=== PATIENT | female | born 1950 | race Two or more races ===

== ENCOUNTER 2018-09-13 11:00 | Emergency (ER) | payer MEDICAID, OTHER ==
[~2018-09-13] VITALS: Ht 157.5 cm; Wt 120.7 kg
[2018-09-13 12:59] LABS: Basophils # (auto) 0.1 uL; Basophils % (auto) 0.8 % (0.0-2.0); Eosinophils # (auto) 0.2 uL; Eosinophils % (auto) 2.1 % (0.0-7.0); Hematocrit 45.8 % (36.0-46.0); Hemoglobin 14.8 g/dL (12.2-16.2); Lymphocytes # (auto) 2.5 uL; Lymphocytes % (auto) 21.2 % (10.0-50.0); Mean Corpuscular Hemoglobin 28.6 pg (28.0-32.0); Mean Corpuscular Hgb Conc. 32.2 g/dL (32.0-36.0); Mean Corpuscular Volume 88.8 fL (80.0-100.0); Monocytes # (auto) 0.7 uL; Monocytes % (auto) 6.2 % (0.0-12.0); Neutrophils # (auto) 8.1 uL; Neutrophils % (auto) 69.7 % (37.0-80.0); Nucleated Red Blood Cells % 0.1 %; Platelet Count (auto) 376 10^3/uL (140-450); Red Blood Cells 5.16 10^6/uL (4.0-5.20); Red Cell Distribution Width 15.5 % (11.8-14.3); White Blood Cell 11.7 10^3/uL (4.4-10.8)
[2018-09-13 13:22] LABS: Albumin 3.7 g/dL (3.4-5.0); Anion Gap 7 (5-15); Blood Urea Nitrogen 18 mg/dL (7-18); Calcium 8.7 mg/dL (8.5-10.1); Carbon Dioxide 25 mmol/L (21-32); Chloride 106 mmol/L (98-107); Glucose 105 mg/dL (74-106); Magnesium 2.5 mg/dL (1.6-2.6); Potassium 4.2 mmol/L (3.5-5.1); Sodium 138 mmol/L (136-145)
[2018-09-13 13:28] LABS: Alanine Aminotransferase 29 U/L (13-56); Alkaline Phosphatase 69 U/L (45-117); Aspartate Aminotransferase 16 U/L (15-37); BUN/Creatinine Ratio 32.1; Bilirubin, Total 0.3 mg/dL (0.2-1.0); GFR African American 139 mL/min; GFR Non-African American 115 mL/min; Total Protein 7.5 g/dL (6.4-8.2)
[2018-09-13] MEDS ORDERED: IOHEXOL 350 MG/ML 100ML IJ ONE (23:23)
[2018-09-14 01:14] VITALS: BP 130/56
== END 2018-09-14 01:54 | disposition home or self-care (01) ==
LOC: ER 11:00 → EDBD 11:00 → ER 09-14 01:54
DX: R07.89 Other chest pain (principal); R06.00 Dyspnea, unspecified; M25.561 Pain in right knee; M25.562 Pain in left knee; K21.9 Gastro-esophageal reflux disease without esophagitis; Z88.1 Allergy status to other antibiotic agents
CPT/HCPCS: 36415; 71046; 71275; 80053; 83735; 84484; 85025; 85379; 93005; 93971; 99284; Q9967

== ENCOUNTER 2019-07-17 17:06 | Emergency (ER) | payer MEDICARE, MEDICAID ==
[~2019-07-17] VITALS: Ht 157.5 cm; Wt 121.6 kg
[2019-07-17 18:14] LABS: Basophils # (auto) 0.1 uL; Basophils % (auto) 0.9 % (0.0-2.0); Eosinophils # (auto) 0.3 uL; Eosinophils % (auto) 2.1 % (0.0-7.0); Hematocrit 45.1 % (36.0-46.0); Hemoglobin 15.2 g/dL (12.2-16.2); Lymphocytes # (auto) 2.6 uL; Lymphocytes % (auto) 19.4 % (10.0-50.0); Mean Corpuscular Hemoglobin 28.1 pg (28.0-32.0); Mean Corpuscular Hgb Conc. 33.6 g/dL (32.0-36.0); Mean Corpuscular Volume 83.6 fL (80.0-100.0); Monocytes # (auto) 0.8 uL; Monocytes % (auto) 5.9 % (0.0-12.0); Neutrophils # (auto) 9.5 uL; Neutrophils % (auto) 71.7 % (37.0-80.0); Platelet Count (auto) 391 10^3/uL (140-450); Red Cell Distribution Width 15.2 % (11.8-14.3); White Blood Cell 13.2 10^3/uL (4.4-10.8)
[2019-07-17 18:31] LABS: Calcium 9.2 mg/dL (8.5-10.1); Potassium 4.2 mmol/L (3.5-5.1)
[2019-07-17 18:34] LABS: BUN/Creatinine Ratio 22.7; Bilirubin, Total 0.3 mg/dL (0.2-1.0)
[2019-07-17 18:46] LABS: Urine Bacteria NONE SEEN /hpf (None Seen); Urine Blood Negative /uL (Negative); Urine Mucus FEW (None Seen); Urine Specific Gravity 1.009 (1.001-1.035); Urine WBC 2 /hpf (0 - 5)
[2019-07-17 19:20] LABS: Amylase 70 U/L (25-115); Lipase 169 U/L (73-393)
[2019-07-17] MEDS ORDERED: IOHEXOL 300 MG/ML 100ML BOTTLE IJ ONE (23:00)
[2019-07-18 02:57] VITALS: BP 128/57
[2019-07-18] MEDS ORDERED: HYDROcodone-ACET 5/325MG TAB PO ONE (03:45)
[2019-07-18] MEDS ORDERED: ONDANSETRON ODT 4 MG TAB PO ONE (03:45)
== END 2019-07-18 04:54 | disposition home or self-care (01) ==
LOC: EDBD 17:06 → ER 17:06
DX: G89.4 Chronic pain syndrome (principal); R10.84 Generalized abdominal pain; K59.00 Constipation, unspecified; K21.9 Gastro-esophageal reflux disease without esophagitis; J45.909 Unspecified asthma, uncomplicated; Z88.1 Allergy status to other antibiotic agents
CPT/HCPCS: 36415; 74177; 80053; 81001; 82150; 82962; 83690; 85025; 93005; 99284; Q0162; Q9967

== ENCOUNTER 2020-10-28 10:41 | Inpatient (IN) | payer MEDICARE, MEDICAID ==
[~2020-10-28] VITALS: Ht 154.9 cm; Wt 126.4 kg
[2020-10-28] MEDS ORDERED: ONDANSETRON HCL 4 MG/2 ML VIAL IV ONE (11:15)
[2020-10-28] MEDS ORDERED: MORPHINE SULFATE 4 MG/ML SYR/VIAL IV ONE (11:15)
[2020-10-28 11:52] LABS: Basophils # (auto) 0.1 10 ^3/uL (0-0.2); Basophils % (auto) 1.4 % (0.0-2.0); Eosinophils # (auto) 0.2 10 ^3/uL (0-0.8); Eosinophils % (auto) 2.1 % (0.0-7.0); Hematocrit 45.7 % (36.0-46.0); Hemoglobin 14.7 g/dL (12.2-16.2); Lymphocytes # (auto) 1.7 10 ^3/uL (0.4-5.4); Lymphocytes % (auto) 20.6 % (10.0-50.0); Mean Corpuscular Hemoglobin 27.5 pg (28.0-32.0); Mean Corpuscular Hgb Conc. 32.2 g/dL (32.0-36.0); Mean Corpuscular Volume 85.2 fL (80.0-100.0); Monocytes # (auto) 0.5 10 ^3/uL (0-1.3); Monocytes % (auto) 6.7 % (0.0-12.0); Neutrophils # (auto) 5.6 10 ^3/uL (1.6-8.6); Neutrophils % (auto) 69.2 % (37.0-80.0); Nucleated Red Blood Cells % 0.2 %; Red Blood Cells 5.36 10^6/uL (4.0-5.20); Red Cell Distribution Width 16.4 % (11.8-14.3); White Blood Cell 8.1 10^3/uL (4.4-10.8)
[2020-10-28 12:27] LABS: Alanine Aminotransferase 21 U/L (13-56); Albumin 3.3 g/dL (3.4-5.0); Alkaline Phosphatase 94 U/L (45-117); Anion Gap 12 (5-15); Aspartate Aminotransferase 13 U/L (15-37); BUN/Creatinine Ratio 15.5; Bilirubin, Total 0.4 mg/dL (0.2-1.0); Blood Urea Nitrogen 9 mg/dL (7-18); Calcium 8.7 mg/dL (8.5-10.1); Carbon Dioxide 17 mmol/L (21-32); Chloride 103 mmol/L (98-107); GFR African American 133 mL/min; GFR Non-African American 110 mL/min; Glucose 384 mg/dL (74-106); Potassium 4.1 mmol/L (3.5-5.1); Sodium 132 mmol/L (136-145); Total Protein 7.2 g/dL (6.4-8.2)
[2020-10-28 12:28] LABS: Magnesium 2.8 mg/dL (1.6-2.6)
[2020-10-28] MEDS ORDERED: MORPHINE SULFATE INJECTION 2 MG/ML SYRG IV PRN ×2 (13:45)
[2020-10-28] MEDS ORDERED: NITROGLYCERIN 0.4 MG SL TAB SL PRN (13:45)
[2020-10-28] MEDS ORDERED: HYDROcodone-ACET 5/325MG TAB PO PRN (13:45)
[2020-10-28] MEDS ORDERED: SODIUM CHLORIDE 0.9% 1,000 ML IV ONE (13:45)
[2020-10-28] MEDS ORDERED: ACETAMINOPHEN 500 MG TAB PO PRN (13:45)
[2020-10-28] MEDS ORDERED: DEXTROSE (50%) 50ML SYRG IV PRN (13:45)
[2020-10-28] MEDS ORDERED: ONDANSETRON HCL 4 MG/2 ML VIAL IV PRN (13:45)
[2020-10-28] MEDS: InsuLIN REG 1unit/0.01ml Soln (100units/ml) SC SCH ×2 (14:47→22:00)
[2020-10-28] MEDS ORDERED: RIVAROXABAN 20 MG TAB PO SCH (18:00)
[2020-10-28] MEDS: ACCU-CHEK COMFORT CURVE STRIP VI SCH ×2 (18:15→22:00)
[2020-10-28] MEDS: RIVAROXABAN 15 MG TAB PO SCH (18:20)
[2020-10-28 18:48] VITALS: BP 126/69
[2020-10-28 20:00] VITALS: BP 153/63
[2020-10-28 22:00] VITALS: BP 133/63
[2020-10-28] MEDS: GABAPENTIN 100 MG CAP PO SCH (22:24)
[2020-10-29 05:34] VITALS: BP 114/46
[2020-10-29 06:21] LABS: Potassium 3.5 mmol/L (3.5-5.1)
[2020-10-29 06:28] LABS: BUN/Creatinine Ratio 25.6; Calcium 8.4 mg/dL (8.5-10.1)
[2020-10-29] MEDS: ACCU-CHEK COMFORT CURVE STRIP VI SCH ×3 (06:41→18:13)
[2020-10-29] MEDS: InsuLIN REG 1unit/0.01ml Soln (100units/ml) SC SCH ×3 (06:41→18:16)
[2020-10-29] MEDS ORDERED: OMEP20TA PO (07:24)
[2020-10-29] MEDS ORDERED: CHOL200029 PO (07:24)
[2020-10-29] MEDS ORDERED: LEVO25TA6 PO (07:24)
[2020-10-29] MEDS ORDERED: RIV15T PO (07:24)
[2020-10-29 08:00] VITALS: BP 135/72
[2020-10-29 09:00] VITALS: BP 135/72
[2020-10-29] MEDS: GABAPENTIN 100 MG CAP PO SCH (09:59)
[2020-10-29] MEDS ORDERED: DOCUSATE SOD 100 MG CAP PO SCH (10:00)
[2020-10-29] MEDS ORDERED: FAMOTIDINE 20 MG TAB PO SCH (10:00)
[2020-10-29 13:00] VITALS: BP 108/47
[2020-10-29] MEDS ORDERED: INSLANTI SC (15:58)
[2020-10-29] MEDS ORDERED: METF-372 PO (15:58)
[2020-10-29] MEDS ORDERED: DOCU-94 PO (16:05)
[2020-10-29] MEDS ORDERED: LACTULOSE 20Gm/30ML SOLN PO PRN (16:15)
[2020-10-29 16:41] VITALS: BP 130/74
[2020-10-29 17:54] VITALS: BP 130/74
[2020-10-29] MEDS: RIVAROXABAN 15 MG TAB PO SCH (18:11)
[2020-10-29] MEDS ORDERED: INSULIN LANTUS (GLARGINE) 1 /0.01ml (100units/ml) SC SCH (22:00)
== END 2020-10-29 21:00 | disposition home or self-care (01) | DRG 638 ==
LOC: ER 10:41 → EDBD 10:41 → OVERFLOW 13:45 → WEST WING 18:04
PROVIDERS: ADMIT Nurse Practitioner Acute Care; ATTEND Internal Medicine
DX: E11.65 Type 2 diabetes mellitus with hyperglycemia (principal); Z68.43 Body mass index [BMI] 50.0-59.9, adult; E66.01 Morbid (severe) obesity due to excess calories; Z20.822 Contact with and (suspected) exposure to COVID-19; E03.9 Hypothyroidism, unspecified; E88.09 Other disorders of plasma-protein metabolism, not elsewhere classified; G89.29 Other chronic pain; E11.42 Type 2 diabetes mellitus with diabetic polyneuropathy; K21.9 Gastro-esophageal reflux disease without esophagitis; Z60.2 Problems related to living alone; K59.00 Constipation, unspecified; Z86.718 Personal history of other venous thrombosis and embolism; Z90.710 Acquired absence of both cervix and uterus; Z91.19 Patient's noncompliance with other medical treatment and regimen; Z74.01 Bed confinement status; Z79.84 Long term (current) use of oral hypoglycemic drugs; Z59.0 Homelessness; Z90.49 Acquired absence of other specified parts of digestive tract; Z88.1 Allergy status to other antibiotic agents
CPT/HCPCS: 36415; 74176; 80048; 80053; 82947; 82962; 83036; 83735; 84484; 85025; 85379; 87426; 93925; 93971; 96361; 96374; 96375; G0378; J1815; J2405

== ENCOUNTER 2022-07-30 15:54 | Inpatient (IN) | payer MEDICARE, MEDICAID ==
[~2022-07-30] VITALS: Ht 154.9 cm; Wt 148.0 kg
[~2022-07-30 15:54] MED LIST: CHOL200029 PO; CHOL20007 PO; COLC0.6T56 PO; DULA0.5I SC; GLIP5TAB12 PO; INSU1INJ19 SC; LEVO-28 PO; LEVO25TA6 PO; OMEP-263 PO; POM; RIV15T PO; SILV-21 TOP; [UNRECOGNIZED DRUG - CODE] EX
[2022-07-30] MEDS ORDERED: SODIUM CHLORIDE 0.9% 500 ML IV ONE (16:15)
[2022-07-30 16:30] LABS: Basophils # (auto) 0.1 10 ^3/uL (0-0.2); Basophils % (auto) 1.2 % (0.0-2.0); Eosinophils # (auto) 0.1 10 ^3/uL (0-0.8); Eosinophils % (auto) 1.1 % (0.0-7.0); Hematocrit 45.6 % (36.0-46.0); Hemoglobin 14.9 g/dL (12.2-16.2); Lymphocytes % (auto) 19.6 % (10.0-50.0); Mean Corpuscular Hemoglobin 27.9 pg (28.0-32.0); Mean Corpuscular Hgb Conc. 32.8 g/dL (32.0-36.0); Mean Corpuscular Volume 85.2 fL (80.0-100.0); Monocytes # (auto) 0.4 10 ^3/uL (0-1.3); Neutrophils # (auto) 7.7 10 ^3/uL (1.6-8.6); Neutrophils % (auto) 74.1 % (37.0-80.0); Red Blood Cells 5.35 10^6/uL (4.0-5.20); Red Cell Distribution Width 15.4 % (11.8-14.3); White Blood Cell 10.4 10^3/uL (4.4-10.8)
[2022-07-30 16:31] LABS: Nucleated Red Blood Cells % 3.5 %
[2022-07-30 16:44] LABS: Albumin 3.2 g/dL (3.4-5.0); BUN/Creatinine Ratio 21.1; Potassium 4.1 mmol/L (3.5-5.1)
[2022-07-30 16:47] LABS: Bilirubin, Total 0.3 mg/dL (0.2-1.0); Total Protein 7.1 g/dL (6.4-8.2)
[2022-07-30] MEDS ORDERED: DOCUSATE SOD 100 MG CAP PO PRN (23:30)
[2022-07-30] MEDS ORDERED: TEMAZEPAM 15 MG CAP PO PRN (23:30)
[2022-07-30] MEDS ORDERED: ACETAMINOPHEN 325 MG TAB PO PRN (23:30)
[2022-07-30] MEDS ORDERED: MAALOX PLUS or MAALOX 30 ML PO PRN (23:30)
[2022-07-30] MEDS ORDERED: MORPHINE SULFATE INJ 2 MG/ml SYRG IV PRN (23:30)
[2022-07-30] MEDS ORDERED: ONDANSETRON HCL 4 MG/2 ML VIAL IV PRN (23:30)
[2022-07-30] MEDS ORDERED: LORazepam 0.5 MG TAB PO PRN (23:30)
[2022-07-30] MEDS ORDERED: DEXTROSE (50%) 50ML SYRG IV PRN (23:30)
[2022-07-31] MEDS: SODIUM CHLORIDE 0.9% 1,000 ML IV SCH ×3 (01:10→23:18)
[2022-07-31] MEDS: ACCU-CHEK COMFORT CURVE STRIP VI SCH ×6 (01:10→21:04)
[2022-07-31] MEDS: INSULIN LANTUS (GLARGINE) 1 /0.01ml (100units/ml) SC SCH ×2 (01:11→21:03)
[2022-07-31] MEDS: InsuLIN REG 1unit/0.01ml Soln (100units/ml) SC SCH ×6 (01:13→21:02)
[2022-07-31 05:17] LABS: Basophils # (auto) 0.1 10 ^3/uL (0-0.2); Basophils % (auto) 0.8 % (0.0-2.0); Eosinophils # (auto) 0.1 10 ^3/uL (0-0.8); Eosinophils % (auto) 0.8 % (0.0-7.0); Hematocrit 45.1 % (36.0-46.0); Hemoglobin 14.6 g/dL (12.2-16.2); Lymphocytes # (auto) 2.4 10 ^3/uL (0.4-5.4); Lymphocytes % (auto) 19.8 % (10.0-50.0); Mean Corpuscular Hemoglobin 27.9 pg (28.0-32.0); Mean Corpuscular Hgb Conc. 32.3 g/dL (32.0-36.0); Mean Corpuscular Volume 86.4 fL (80.0-100.0); Monocytes # (auto) 0.7 10 ^3/uL (0-1.3); Monocytes % (auto) 5.8 % (0.0-12.0); Neutrophils # (auto) 8.9 10 ^3/uL (1.6-8.6); Neutrophils % (auto) 72.8 % (37.0-80.0); Red Blood Cells 5.22 10^6/uL (4.0-5.20); Red Cell Distribution Width 15.1 % (11.8-14.3); White Blood Cell 12.3 10^3/uL (4.4-10.8)
[2022-07-31 05:37] LABS: Potassium 3.5 mmol/L (3.5-5.1)
[2022-07-31 05:45] LABS: BUN/Creatinine Ratio 20.3; Calcium 8.9 mg/dL (8.5-10.1)
[2022-07-31] MEDS: LEVOTHYROXINE SODIUM 25 MCG TAB PO SCH (06:45)
[2022-07-31] MEDS: PANTOPRAZOLE 40 MG TAB PO SCH (08:09)
[2022-07-31 16:08] LABS: Urine Bacteria MANY /hpf (None Seen); Urine Budding Yeast MANY /hpf (None Seen); Urine WBC 1128 /hpf (0 - 5); Urine WBC Clumps PRESENT /hpf (None Seen)
[2022-07-31 16:19] LABS: Urine Blood 2+ /uL (Negative); Urine Specific Gravity 1.024 (1.001-1.035)
[2022-07-31] MEDS: cefTRIAXone 1GM/50ML D5W 50 ML IV SCH (22:21)
[2022-08-01] MEDS: ACCU-CHEK COMFORT CURVE STRIP VI SCH ×7 (00:03→23:45)
[2022-08-01] MEDS: InsuLIN REG 1unit/0.01ml Soln (100units/ml) SC SCH ×7 (00:09→23:49)
[2022-08-01] MEDS: SODIUM CHLORIDE 0.9% 1,000 ML IV SCH ×2 (04:58→16:35)
[2022-08-01] MEDS: LEVOTHYROXINE SODIUM 25 MCG TAB PO SCH (06:51)
[2022-08-01] MEDS: PANTOPRAZOLE 40 MG TAB PO SCH (08:14)
[2022-08-01] MEDS: cefTRIAXone 1GM/50ML D5W 50 ML IV SCH (08:26)
[2022-08-01 14:04] VITALS: BP 140/65
[2022-08-01 14:48] VITALS: BP 105/39
[2022-08-01 16:50] VITALS: BP 114/44
[2022-08-01] MEDS: INSULIN LANTUS (GLARGINE) 1 /0.01ml (100units/ml) SC SCH (21:29)
[2022-08-01 21:57] VITALS: BP 126/67
[2022-08-01] MEDS: HYDROcodone-ACET 5/325MG TAB PO PRN (22:56)
[2022-08-02] VITALS (7 sets, daily range): BP systolic 118–137; BP diastolic 43–69
[2022-08-02] MEDS: SODIUM CHLORIDE 0.9% 1,000 ML IV SCH ×3 (02:23→21:30)
[2022-08-02] MEDS: ACCU-CHEK COMFORT CURVE STRIP VI SCH ×5 (03:26→20:17)
[2022-08-02] MEDS: InsuLIN REG 1unit/0.01ml Soln (100units/ml) SC SCH ×5 (03:32→20:16)
[2022-08-02] MEDS: HYDROcodone-ACET 5/325MG TAB PO PRN (03:33)
[2022-08-02] MEDS: LEVOTHYROXINE SODIUM 25 MCG TAB PO SCH (06:46)
[2022-08-02] MEDS: PANTOPRAZOLE 40 MG TAB PO SCH (08:28)
[2022-08-02] MEDS: cefTRIAXone 1GM/50ML D5W 50 ML IV SCH (08:30)
[2022-08-02] MEDS ORDERED: CIPR-173 PO (11:09)
[2022-08-02] MEDS ORDERED: INSLANTI SC (11:09)
[2022-08-02] MEDS: INSULIN LANTUS (GLARGINE) 1 /0.01ml (100units/ml) SC SCH (22:00)
== END 2022-08-02 22:45 | disposition home or self-care (01) | DRG 638 ==
LOC: EDBD 15:54 → EDUNIT# 15:54 → ER 15:58 → OVERFLOW 23:29 → EAST 08-01 14:41
PROVIDERS: ADMIT Hospitalist; ATTEND Family Medicine
DX: E11.65 Type 2 diabetes mellitus with hyperglycemia (principal); N39.0 Urinary tract infection, site not specified; Z68.44 Body mass index [BMI] 60.0-69.9, adult; E78.00 Pure hypercholesterolemia, unspecified; E86.0 Dehydration; Z20.822 Contact with and (suspected) exposure to COVID-19; E66.01 Morbid (severe) obesity due to excess calories; E03.9 Hypothyroidism, unspecified; G89.4 Chronic pain syndrome; Z88.8 Allergy status to other drugs, medicaments and biological substances; Z91.199 Patient's noncompliance with other medical treatment and regimen due to unspecified reason; Z90.710 Acquired absence of both cervix and uterus; Z88.1 Allergy status to other antibiotic agents; Z80.1 Family history of malignant neoplasm of trachea, bronchus and lung; Z90.49 Acquired absence of other specified parts of digestive tract
CPT/HCPCS: 36415; 71045; 80048; 80053; 81001; 82962; 83036; 85025; 87040; 87086; 87426; 87804; 93005; 96360; G0378; J0696; J1815

== ENCOUNTER 2023-04-13 11:55 | Emergency (ER) | payer MEDICARE, MEDICAID ==
[~2023-04-13] VITALS: Ht 154.9 cm; Wt 136.0 kg
[~2023-04-13 11:55] MED LIST changes: +CIPR-173 PO; +INSLANTI SC; -LEVO-28 PO; +LEVO500T91 PO; -OMEP-263 PO; +OMEP-448 PO; -SILV-21 TOP; +SILV-51 TOP
[2023-04-13] MEDS ORDERED: MORPHINE SULFATE 4 MG/ML SYR/VIAL IV ONE (12:15)
[2023-04-13 12:24] VITALS: O2SAT 98
[2023-04-13 13:08] LABS: Basophils # (auto) 0.1 10 ^3/uL (0-0.2); Basophils % (auto) 0.7 % (0.0-2.0); Eosinophils # (auto) 0.3 10 ^3/uL (0-0.8); Eosinophils % (auto) 1.8 % (0.0-7.0); Hematocrit 43.1 % (36.0-46.0); Hemoglobin 14.3 g/dL (12.2-16.2); Lymphocytes # (auto) 2.7 10 ^3/uL (0.4-5.4); Lymphocytes % (auto) 19.7 % (10.0-50.0); Mean Corpuscular Hemoglobin 27.9 pg (28.0-32.0); Mean Corpuscular Hgb Conc. 33.1 g/dL (32.0-36.0); Mean Corpuscular Volume 84.3 fL (80.0-100.0); Monocytes # (auto) 0.7 10 ^3/uL (0-1.3); Monocytes % (auto) 5.1 % (0.0-12.0); Neutrophils # (auto) 10.1 10 ^3/uL (1.6-8.6); Neutrophils % (auto) 72.7 % (37.0-80.0); Red Blood Cells 5.12 10^6/uL (4.0-5.20); Red Cell Distribution Width 15.2 % (11.8-14.3); White Blood Cell 13.9 10^3/uL (4.4-10.8)
[2023-04-13] MEDS ORDERED: GABA250S7 PO (13:21)
[2023-04-13] MEDS ORDERED: NAPR-1334 PO (13:21)
[2023-04-13 13:29] LABS: Alanine Aminotransferase 36 U/L (7-40); Albumin 4.4 g/dL (3.2-4.8); Alkaline Phosphatase 83 U/L (46-116); Anion Gap 8 (5-15); Aspartate Aminotransferase 21 U/L (13-40); Bilirubin, Total 0.3 mg/dL (0.2-1.0); Blood Urea Nitrogen 9 mg/dL (9-23); Calcium 9.4 mg/dL (8.7-10.4); Carbon Dioxide 25 mmol/L (20-30); Chloride 102 mmol/L (98-107); Glucose 277 mg/dL (74-106); Sodium 135 mmol/L (136-145); Total Protein 7.4 g/dL (5.7-8.2)
[2023-04-13 13:32] LABS: INR 1.31 (0.9-1.15); Prothrombin Time 13.5 sec (9.3-11.8)
[2023-04-13] MEDS ORDERED: ONDANSETRON ODT 4 MG TAB PO ONE (18:15)
[2023-04-13 19:00] VITALS: PULSE 85; RESP 20; O2SAT 96
[2023-04-13 20:01] VITALS: BP 138/66; PULSE 93; RESP 18; O2SAT 95
== END 2023-04-13 13:11 | disposition home or self-care (01) ==
LOC: EDBD 11:55 → ER 11:55
DX: M79.662 Pain in left lower leg (principal); E11.9 Type 2 diabetes mellitus without complications; K21.9 Gastro-esophageal reflux disease without esophagitis; E78.5 Hyperlipidemia, unspecified; Z90.49 Acquired absence of other specified parts of digestive tract; Z90.710 Acquired absence of both cervix and uterus; Z98.890 Other specified postprocedural states; Z90.89 Acquired absence of other organs; Z88.1 Allergy status to other antibiotic agents; Z79.4 Long term (current) use of insulin; Z79.899 Other long term (current) drug therapy
CPT/HCPCS: 36415; 80053; 85025; 85610; 93971; 96374; 99285; J2270; Q0162

== ENCOUNTER 2025-05-03 12:02 | Emergency (ER) | payer MEDICARE, MEDICAID ==
[~2025-05-03] VITALS: Ht 154.9 cm; Wt 133.0 kg
[~2025-05-03 12:02] MED LIST changes: +GABA250S7 PO; -GLIP5TAB12 PO; +GLIP5TAB21 PO; +NAPR-1335 PO
--- NOTE | 2025-05-03 12:30 | ED.PDOC ---
HPI Comments 74 y.o female with PMHx of DM presents to the ED via EMS for a chief complaint chest wall pain associated with a cough that started 2 days ago. Patient reports pain is exacerbated when she develops a productive coughing fit. She denies any nausea, vomiting, diarrhea, fever, chills. EMS reports BG of 450 on scene. Per patient, has been compliant with taking her DM medication. At this time, patient is being treated for a UTI. Patient is bedbound s/p back surgery a couple years ago. Time Seen by MD: 12:20 Primary Care Provider: ARNALDO PRINCE Reviewed Notes: Nurses Notes, Mechanical Technical Service Specialist Notes, Medications, Allergies Allergies: Coded Allergies: Erythromycin (Verified Allergy, Unknown, 09/13/18) Home Meds Active Scripts Levofloxacin Hemihydrate (LEVOFLOXACIN) 500 Mg Tab, 500 MG PO DAILY for 7 Days, #7 MG Prov:ROSALVA BULLOCK MD 05/03/25 Gabapentin (GABAPENTIN) 250 Mg/5 Ml Elizabeth, 250 MG PO DAILY for 7 Days, #10 ML Prov:VONNIE YEBOAH MD 04/13/23 Naproxen Sodium (Naproxen) 220 Mg Tab, 220 MG PO BID for 7 Days, #14 TAB Prov:VONNIE YEBOAH MD 04/13/23 Ciprofloxacin Hcl (Cipro) 500 Mg Tab, 1 TAB PO BID, #20 TAB Prov:LAMONT MOSQUEDA MD 08/02/22 Insulin Glargine (Lantus) 100 Unit/Ml Inj, 30 UNIT SC HS for 50 Days, #5 INJ Prov:LAMONT MOSQUEDA MD 08/02/22 Levofloxacin Hemihydrate (LEVOFLOXACIN) 500 Mg Tab, 1 TAB PO DAILY, #5 TAB Prov:THELMA WILKERSON MD 07/10/21 Cholecalciferol (VITAMIN D3) 2,000 Unit Tab, 2 TAB PO DAILY, #30 TAB 1 Refill Prov:THELMA WILKERSON MD 07/10/21 Colchicine (COLCRYS TABLET) 0.6 Mg Tb, 0.6 MG PO Q12HR for 7 Days, #14 TAB Prov:THELMA WILKERSON MD 07/10/21 Reported Medications Patients Own Medication (PATIENTS OWN MEDICATION) Unknown Strength ., DAILY PTS OWN MED DRUG: TOTAL RESTORE TAB FREQ: 3 TABS PO DAILY RX# EXP: DATE DISP: TECH: RPH: 12/22/21 Vitamins A & D (Topical) (A&D) 1 Oin Oin, 1 APPLIC EX PRN 07/08/21 Silver Sulfadiazine (Silver Sulfadiazine) 1 % Cre, 1 APPLIC TOP PRN 07/08/21 Dulaglutide (Trulicity) 1.5 Mg/0.5 Ml Inj, 1.5 MG SC QWEEKLY 07/08/21 Glipizide (Glipizide) 5 Mg Tab, 1 TAB PO BID 07/08/21 Insulin Glargine (Basaglar Kwikpen) 100 Unit/Ml Inj, 25 UNIT SC BID 07/08/21 Omeprazole (Omeprazole Dr) 40 Mg Cap, 40 MG PO DAILY 07/08/21 Cholecalciferol (VITAMIN D3) 2,000 Unit Chw, 2000 UNIT PO DAILY, TAB.CHEW 10/29/20 Rivaroxaban (Xarelto Tablet) 15 Mg Tb, 15 MG PO DAILY, TAB 10/29/20 Levothyroxine Sodium (Levothyroxine Sodium) 25 Mcg Tab, 25 MCG PO QAM, MCG 10/29/20 Information Source: Patient, Emergency Med Personnel Mode of Arrival: EMS Severity: Moderate Timing: Days (2) Duration: Since onset Location: Substernal Radiation: No Radiation Quality: Sharp Onset: At Rest Cardiac Risk Factors: Hyperlipidemia, Diabetes PE Risk Factors: None History of: None Modifying Factors: Nothing Associated Signs and Symptoms: Other Past Medical History PAST MEDICAL HISTORY: DM, GERD, High Lipids, Thyroid Surgical History: Appendectomy, Cholecystectomy, , Hernia Repair, Hysterectomy, Tonsillectomy 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 PRESS OPERATOR History: No Pertinent LAMINATING PRESS OPERATOR History Family History Family History: Reviewed,noncontributory to illness Social History Smoker: Non-Smoker Alcohol: Denies ETOH Use Drugs: Denies Drug Use Lives In: Home Constitutional: denies: chills, diaphoresis, fatigue, fever, malaise, sweats, weakness, others EENTM: denies: blurred vision, double vision, ear bleeding, ear discharge, ear drainage, ear pain, ear ringing, eye pain, eye redness, hearing loss, mouth pain, mouth swelling, nasal discharge, nose bleeding, nose congestion, nose pain, photophobia, tearing, throat pain, throat swelling, voice changes, others Respiratory: reports: cough; denies: hemoptysis, orthopnea, SOB at rest, shortness of breath, SOB with excertion, stridor, wheezing, others Cardiovascular: reports: chest pain; denies: dizzy spells, diaphoresis, Dyspnea on exertion, edema, irregular heart beat, left arm pain, lightheadedness, palpitations, PND, syncope, others Gastrointestinal: denies: abdomen distended, abdominal pain, blood streaked bowels, constipated, diarrhea, dysphagia, difficulty swallowing, hematemesis, melena, nausea, poor appetite, poor fluid intake, rectal bleeding, rectal pain, vomiting, others Genitourinary: denies: abnormal vagina bleeding, burning, dyspareunia, dysuria, flank pain, frequency, hematuria, incontinence, pain, , vagina d ischarge, urgency, others Neurological: denies: dizziness, fainting, headache, left sided numbness, left sided weakness, numbness, paresthesia, pre-existing deficit, right sided numbness, right sided weakness, seizure, speech problems, tingling, tremors, weakness, others Musculoskeletal: denies: back pain, gout, joint pain, joint swelling, muscle pain, muscle stiffness, neck pain, others Integumetry: denies: bruises, change in color, change in hair/nails, dryness, laceration, lesions, lumps, rash, wounds, others Allergic/Immunocompromised: denies: Difficulty Healing, Frequent Infections, Hives, Itching, others Hematologic/Lymphatic: denies: anemia, blood clots, easy bleeding, easy bruising, swollen glands, others Endocrine: denies: excessive hunger, excessive sweating, excessive thirst, excessive urination, flushing, intolerance to cold, intolerance to heat, unexplained weight gain, unexplained weight loss, others Psychiatric: denies: anxiety, bipolar disorder, depression, hopeless, panic disorder, schizophrenia, sleepless, suicidal, others All Other Systems: Reviewed and Negative Physical Exam General Appearance: Moderate Distress HEENT: Normal ENT Inspection, Pharynx Normal, TMs Normal Neck: Full Range of Motion, Non-Tender, Normal, Normal Inspection Respiratory: Chest Non-Tender, Lungs Clear, No Accessory Muscle Use, No Respiratory Distress, Normal Breath Sounds Cardiovascular: No Edema, No JVD, No Murmur, No Gallop, Normal Peripheral Pulses, Regular Rate/Rhythm Breast Exam: Deferred Gastrointestinal: No Organomegaly, Non Tender, No Pulsatile Mass, Normal Bowel Sounds, Soft Genitalia: Deferred Pelvic: Deferred Rectal: Deferred Extremities: No calf tenderness, No pedal edema Musculoskeletal : Apperance: Normal Neurologic: Alert Cerebellar Function: NOT DONE Reflexes: NOT DONE Skin: Dry, Normal Color, Warm Peripheral Pulses: 3+ Radial (R), 3+ Radial (L) Lymphatic: No Adenopathy EKG EKG : Pulse Rate (adult): 91 Cardiac Rhythm: NSR Was a procedure done? Was a procedure done?: No CP Differential Dx Differential Diagnosis: A-fib, A-Flutter, Angina, Anxiety / Panic Attack, Atrial Dysrhythmia, Electrolyte Disorder, N/A Differential Diagnosis: Angina, Chest Wall Pain, Cholelithiasis, Costochondritis, Pericarditis X-Ray, Labs, Meds, VS Vital Signs Date Time Temp Pulse Resp B/P (MAP) Pulse Ox O2 Delivery O2 Flow Rate FiO2 05/03/25 13:10 92 05/03/25 12:30 91 05/03/25 12:05 91 05/03/25 12:05 98.2 92 16 149/65 97 98.2 Lab Test 05/03/25 14:11 05/03/25 13:14 Range/Units Troponin I High Sensitivity < 3 L < 3 L </=34 ng/L White Blood Count 10.3 4.4-10.8 10^3/uL Red Blood Count 5.10 4.0-5.20 10^6/uL Hemoglobin 13.9 12.2-16.2 g/dL Hematocrit 42.6 36.0-46.0 % Mean Corpuscular Volume 83.5 80.0-100.0 fL Mean Corpuscular Hemoglobin 27.3 L 28.0-32.0 pg Mean Corpuscular Hemoglobin Concent 32.7 32.0-36.0 g/dL Red Cell Distribution Width 15.3 H 11.8-14.3 % Platelet Count 345 140-450 10^3/uL Mean Platelet Volume 7.8 6.9-10.8 fL Neutrophils (%) (Auto) 68.5 37.0-80.0 % Lymphocytes (%) (Auto) 22.7 10.0-50.0 % Monocytes (%) (Auto) 5.4 0.0-12.0 % Eosinophils (%) (Auto) 2.3 0.0-7.0 % Basophils (%) (Auto) 1.1 0.0-2.0 % Neutrophils # (Auto) 7.0 1.6-8.6 10 ^3/uL Lymphocytes # (Auto) 2.3 0.4-5.4 10 ^3/uL Monocytes # (Auto) 0.6 0-1.3 10 ^3/uL Eosinophils # (Auto) 0.2 0-0.8 10 ^3/uL Basophils # (Auto) 0.1 0-0.2 10 ^3/uL Nucleated Red Blood Cells 0.1 % Sodium Level 135 L 136-145 mmol/L Potassium Level 4.2 3.5-5.1 mmol/L Chloride Level 104 98-107 mmol/L Carbon Dioxide Level 20 20-31 mmol/L Anion Gap 11 5-15 Blood Urea Nitrogen 7 L 9-23 mg/dL Creatinine 0.72 0.550-1.02 mg/dL Glomerular Filtration Rate Calc 88 >90 mL/min BUN/Creatinine Ratio 9.7 L 10.0-20.0 Serum Glucose 348 H 74-106 mg/dL Calcium Level 8.2 L 8.7-10.4 mg/dL Patient alert. Came in because of chest discomfort. Has been having cough causing the pain. Vitals stable. She is bed ridden. Blood sugar slightly elevated. Cardiac marker within normal limits. WBC within normal limits. Hemoglobin within normal limits. Chest x-ray reviewed does show mild inflammation possible pneumonitis. Was given prescription of Levaquin antibiotic. Explained to the patient. Was told to follow up with her primary care physician. Was told to come back if there is any problem. X-Ray, Labs, Meds, VS Comment [address] [address] Ph: [phone] DIAGNOSTIC IMAGING Diagnostic Imaging Report : [id number] Signed PATIENT: SHEREE MIXON ACCT: [id number] UNIT: [id number] : 1950 LOC: ER ROOM / BED: / AGE / SEX: 74 / F ADM STATUS: REG ER SERVICE 1211 ORDERING PHYSICIAN: ROSALVA BULLOCK MD PROCEDURE(s): CXRP - CHEST PORTABLE REASON: sob ORDER NUMBER(s): [id number], ACCESSION NUMBER(s): [id number] EXAM: XY CHEST PORTABLE Indication: sob Technique: Single frontal view of the chest was obtained Comparison: CXRP on DOS: 07/30/22, CHEST PORTABLE on DOS: 07/30/22, CHEST PORTABLE on DOS: 07/08/21 FINDINGS: Lines and Tubes: None Lungs: No focal consolidation. Pleura: No effusion. No pneumothorax. Cardiomediastinal contours: Unremarkable. Atherosclerotic vascular calcifications of the thoracic aorta are noted. Bones: No acute osseous abnormality. IMPRESSION: No acute cardiopulmonary disease. ATED BY: JERMAINE BURNS MD DICTATED DATE/TIME: 05/03/251349 SIGNED BY: JERMAINE BURNS MD SIGNED DATE/TIME: 05/03/251349 CC: Time of 1ST Reevaluation: 12:25 Reevaluation 1ST: Unchanged Patient Education/Counseling: Diagnosis, Treatment, Prognosis Family Education/Counseling: No Family Present SEPSIS Sepsis Screen Physician Orders Chest Portable (05/03/25 12:11) Urinalysis (05/03/25 12:11) Troponin-I Hs (05/03/25 15:11) Electrocardigram (05/03/25 12:17) Electrocardigram (05/03/25 13:17) Electrocardigram (05/03/25 15:17) Vital Signs Date Time Temp Pulse Resp B/P (MAP) Pulse Ox O2 Delivery O2 Flow Rate FiO2 05/03/25 13:10 92 05/03/25 12:30 91 05/03/25 12:05 91 05/03/25 12:05 98.2 92 16 149/65 97 98.2 Laboratory Tests Test 05/03/25 13:14 White Blood Count 10.3 10^3/uL (4.4-10.8) Departure 1 Departure Time of Disposition: 14:28 Impression: Primary Impression: Uncontrolled diabetes mellitus Qualified Codes: E13.65 - Other specified diabetes mellitus with hypergly cemia Additional Impressions: Musculoskeletal chest pain Pneumonitis Disposition: 01 HOME / SELF CARE / HOMELESS Condition: Good e-Prescriptions Levofloxacin Hemihydrate (LEVOFLOXACIN) 500 Mg Tab 500 MG PO DAILY for 7 Days, #7 MG Prov: ROSALVA BULLOCK MD 05/03/25 Discharged With: Self Critical Care Note Critical Care Time?: No Stability Stability form required: No Heart Score Heart Score: Heart Score Response (Comments) Value History Slightly Suspicious 0 EKG Normal 0 Age >65 2 Risk Factors 1 or 2 risk factors 1 Troponin Normal limit 0 Total 3 I personally scribed for ROSALVA BULLOCK MD ([email or web address]) on 05/03/25 at 12:30. Electronically submitted by Ellen Luna ([facility]). I personally scribed for ROSALVA BULLOCK MD ([email or web address]) on 05/03/25 at 15:49. Electronically submitted by Ellen Luna ([facility]). ROSALVA BULLOCK MD May 03, 2025 12:30
[2025-05-03 13:25] LABS: Hematocrit 42.6 % (36.0-46.0); Hemoglobin 13.9 g/dL (12.2-16.2); Mean Corpuscular Hemoglobin 27.3 pg (28.0-32.0); Mean Corpuscular Volume 83.5 fL (80.0-100.0); Nucleated Red Blood Cells % 0.1 %
[2025-05-03 13:31] LABS: Chloride 104 mmol/L (98-107); Potassium 4.2 mmol/L (3.5-5.1)
[2025-05-03 13:32] LABS: Anion Gap 11 (5-15); Carbon Dioxide 20 mmol/L (20-31)
[2025-05-03 13:33] LABS: Calcium 8.2 mg/dL (8.7-10.4); Sodium 135 mmol/L (136-145)
[2025-05-03 13:37] LABS: BUN/Creatinine Ratio 9.7 (10.0-20.0)
[2025-05-03 13:39] LABS: Blood Urea Nitrogen 7 mg/dL (9-23); Glucose 348 mg/dL (74-106)
--- NOTE | 2025-05-03 13:52 | DVH ---
EXAM: XY CHEST PORTABLE Indication: sob Technique: Single frontal view of the chest was obtained Comparison: CXRP on DOS: 07/30/22, CHEST PORTABLE on DOS: 07/30/22, CHEST PORTABLE on DOS: 07/08/21 FINDINGS: Lines and Tubes: None Lungs: No focal consolidation. Pleura: No effusion. No pneumothorax. Cardiomediastinal contours: Unremarkable. Atherosclerotic vascular calcifications of the thoracic ao rta are noted. Bones: No acute osseous abnormality. IMPRESSION: No acute cardiopulmonary disease.
[2025-05-03] MEDS ORDERED: LEVO500T91 PO (15:30)
--- NOTE | 2025-05-04 03:00 | ECG ---
[facility] Test Date: 2025-05-03 Test Time: 13:10:10 Pat Name: SHEREE MIXON Department: [facility] ED Patient ID: [id number] Room: Gender: F Collar Baster: KARTIK : 1950 Requested By: ROSALVA BULLOCK Order Number: [id number] Reading MD: Arnaldo José Measurements Intervals [place] Rate: 92 P: 56 NH: 158 QRS: 33 QRSD: 96 T: 40 QT: 381 QTc: 472 Interpretive Statements Sinus rhythm Atrial premature complex Low voltage, precordial leads Baseline wander in lead(s) V3 Electronically Signed On 05-04-2025 18:48:45 PDT by Arnaldo José Please click the below link to view image of tracing.
--- NOTE | 2025-05-04 03:09 | ECG ---
[facility] Test Date: 2025-05-03 Test Time: 12:05:19 Pat Name: SHEREE MIXON Department: [facility] ED Patient ID: [id number] Room: Gender: F Reporting Coordinator: [email or web address] : 1950 Requested By: ROSALVA BULLOCK Order Number: [id number] Reading MD: Arnaldo José Measurements Intervals [place] Rate: 91 P: 43 RI: 163 QRS: 12 QRSD: 109 T: 23 QT: 386 QTc: 475 Interpretive Statements Sinus rhythm Low voltage, precordial leads Borderline T abnormalities, anterior leads Electronically Signed On 05-04-2025 18:48:33 PDT by Arnaldo José Please click the below link to view image of tracing.
[2025-05-04] MEDS: InsuLIN REG 1unit/0.01ml Soln (100units/ml) IV ONE (09:16)
[2025-05-04 12:23] VITALS: BP 129/56; PULSE 96; RESP 12; TEMP 97.3; O2SAT 93
== END 2025-05-04 11:32 | disposition home or self-care (01) ==
LOC: ER 12:02 → EDBD 12:02 → ER 05-04 11:32
DX: E11.65 Type 2 diabetes mellitus with hyperglycemia (principal); J18.9 Pneumonia, unspecified organism; R07.89 Other chest pain; E78.5 Hyperlipidemia, unspecified; Z79.899 Other long term (current) drug therapy; Z79.890 Hormone replacement therapy; Z79.84 Long term (current) use of oral hypoglycemic drugs; Z79.4 Long term (current) use of insulin; Z79.01 Long term (current) use of anticoagulants; Z98.890 Other specified postprocedural states; Z90.710 Acquired absence of both cervix and uterus; Z88.1 Allergy status to other antibiotic agents; Z79.85 Long-term (current) use of injectable non-insulin antidiabetic drugs; Z90.49 Acquired absence of other specified parts of digestive tract
CPT/HCPCS: 36415; 71045; 80048; 82947; 82962; 84484; 85025; 93005